=== PATIENT | male | born 1990 | race Two or more races ===

== ENCOUNTER 2016-12-19 02:41 | Emergency (ER) | payer SELFPAY ==
[2016-12-19] MEDS ORDERED: FAMOTIDINE 20 MG TABLET PO ONE (03:08)
[2016-12-19] MEDS ORDERED: SUCRALFATE 1 GM TABLET PO ONE (03:08)
[2016-12-19] MEDS ORDERED: ONDANSETRON 4 MG TAB.RAPDIS PO ONE (03:08)
--- NOTE | 2016-12-19 03:10 | ER Document Report ---
ED General - General Chief Complaint: Chest Tightness Stated Complaint: CHEST PAIN Time Seen by Provider: 12/19/16 03:00 Notes: Patient is a 26-year-old male comes emergency department for chief complaint of chest pain, he points to his mid sternum, he states it radiates down to his upper abdomen, he states he has been noticing it for the past couple of days. He states it is worse when he is lying down and he cannot sleep tonight. He denies shortness of breath, trauma, fever, nausea or vomiting. He states it is slightly worse when eating. He smokes occasionally, drinks occasionally, denies any recreational drugs. He takes no daily medications, denies any surgeries, denies any past medical history. TRAVEL OUTSIDE OF THE [place] IN LAST 30 DAYS: No - Related Data Allergies/Adverse Reactions: No Known Allergies Allergy (Verified 12/19/16 02:46) Past Medical History - General Information source: Patient - Social History Smoking Status: Current Some Day Smoker Frequency of alcohol use: Social Drug Abuse: None Lives with: Family Family History: Reviewed & Not Pertinent Patient has suicidal ideation: No Patient has homicidal ideation: No - Medical History Medical History: Negative Renal/ Medical History: Denies: Hx Peritoneal Dialysis Surgical Hx: Negative - Immunizations Immunizations up to date: Yes Hx Diphtheria, Pertussis, Tetanus Vaccination: Yes Review of Systems - Review of Systems Constitutional: No symptoms reported EENT: No symptoms reported Cardiovascular: See HPI Respiratory: No symptoms reported Gastrointestinal: See HPI Genitourinary: No symptoms reported Male Genitourinary: No symptoms reported Musculoskeletal: No symptoms reported Skin: No symptoms reported Hematologic/Lymphatic: No symptoms reported Neurological/Psychological: No symptoms reported Physical Exam - Vital signs Vitals: Temp Pulse Resp BP Pulse Ox 97.8 F 67 18 155/99 H 98 12/19/16 02:46 12/19/16 02:46 12/19/16 02:46 12/19/16 02:46 12/19/16 02:46 Interpretation: Normal - General General appearance: Appears well, Alert In distress: None - HEENT Head: Normocephalic, Atraumatic Eyes: Normal Pupils: PERRL - Respiratory Respiratory status: No respiratory distress Chest status: Nontender Breath sounds: Normal Chest palpation: Normal - Cardiovascular Rhythm: Regular. No: Tachycardia Heart sounds: Normal auscultation, S1 appreciated, S2 appreciated Murmur: No - Abdominal Inspection: Normal Distension: No distension Bowel sounds: Normal Tenderness: Nontender. No: Tender, McBurney's point, Bar's sign, Guarding Organomegaly: No organomegaly - Back Back: Normal, Nontender - Extremities General upper extremity: Normal inspection, Nontender, Normal color, Normal ROM , Normal temperature General lower extremity: Normal inspection, Nontender, Normal color, Normal ROM , Normal temperature, Normal weight bearing. No: Tino's sign - Neurological Neuro grossly intact: Yes Cognition: Normal Orientation: AAOx4 [place] Coma Scale Eye Opening: Spontaneous Isaac Coma Scale Verbal: Oriented Isaac Coma Scale Motor: Obeys Commands [place] Coma Scale Total: 15 Speech: Normal Motor strength normal: LUE, RUE, LLE, RLE Sensory: Normal - Psychological Associated symptoms: Normal affect, Normal mood - Skin Skin Temperature: Warm Skin Moisture: Dry Skin Color: Normal Course - Re-evaluation Re-evalutation: Patient well-appearing on my exam although he is still complaining of symptoms in his chest and upper abdomen. Unremarkable vital signs other than mild hypertension. Chest x-ray and EKG are unremarkable. Patient symptoms are suspicious and suggestive of a gastrointestinal source. After Carafate, Pepcid, Zofran patient's symptoms resolved. Discussed recommendations with patient in detail, will prescribe medications to treat gastrointestinal source, discussed follow-up and return precautions, patient states understanding and agreement. - Vital Signs Vital signs: Temp Pulse Resp BP Pulse Ox 97.6 F 69 18 145/84 H 100 12/19/16 04:52 12/19/16 04:52 12/19/16 04:52 12/19/16 04:52 12/19/16 04:52 Discharge - Discharge Clinical Impression: Upper abdominal pain Chest pain Qualifiers: Chest pain type: unspecified Qualified Code(s): R07.9 - Chest pain, unspecified Condition: Stable Disposition: HOME, SELF-CARE Additional Instructions: Your EKG and chest x-ray are normal. Your examination and symptoms are consistent with a gastrointestinal source of your symptoms, I believe you have GERD, gastritis, esophagitis. Take the prescribed medications, if needed take Tums or Rolaids additionally, you can take Tylenol for pain, avoid NSAIDs (ibuprofen/Advil, naproxen/Aleve, aspirin/BC powder), avoid caffeine, avoid smoking and alcohol, avoid spicy foods. Follow-up with primary care. Return to emergency department if he develop any concerning worsening symptoms including vomiting, increased pain, black stools, etc. Prescriptions: Famotidine [Pepcid 20 mg Tablet] 20 mg PO BID #20 tablet Sucralfate [Carafate 1 gm Tablet] 1 gm PO QID #20 tablet Forms: Return to Work, Elevated Blood Pressure
--- NOTE | 2016-12-19 03:38 | RADIOLOGY REPORT (SQ) ---
EXAM DESCRIPTION: CHEST PA/LAT COMPLETED DATE/TIME: 12/19/2016 3:28 am REASON FOR STUDY: chest pain COMPARISON: None. EXAM PARAMETERS: NUMBER OF VIEWS: two views TECHNIQUE: Digital Frontal and Lateral radiographic views of the chest acquired. RADIATION DOSE: NA LIMITATIONS: none FINDINGS: LUNGS AND PLEURA: No opacities, masses or pneumothorax. No pleural effusion. MEDIASTINUM AND HILAR STRUCTURES: No masses or contour abnormalities. HEART AND VASCULAR STRUCTURES: Heart normal size. No evidence for failure. BONES: No acute findings. HARDWARE: None in the chest. OTHER: No other significant finding. IMPRESSION: NO SIGNIFICANT RADIOGRAPHIC FINDING IN THE CHEST. TECHNICAL DOCUMENTATION: JOB ID: [id number] [employer]- All Rights Reserved
[2016-12-19 04:53] VITALS: BP 145/84
--- NOTE | 2016-12-19 23:11 | EKG REPORT ---
SEVERITY:- NORMAL ECG - SINUS RHYTHM : Confirmed by: Alanis Machado 19-Dec-2016 23:10:34
== END 2016-12-19 04:53 | disposition home or self-care (01) ==
LOC: ER 02:41
DX: R10.10 Upper abdominal pain, unspecified (principal); R07.9 Chest pain, unspecified; F17.200 Nicotine dependence, unspecified, uncomplicated
CPT/HCPCS: 93005; 99285; 71020; 93010; S0119